=== PATIENT | female | born 1970 | race Hispanic/Latino ===

== ENCOUNTER 2016-08-19 07:36 | Emergency (ER) | payer SELFPAY ==
[2016-08-19] MEDS ORDERED: Ondansetron HCl/PF 4 MG/2 ML Vial ONE (08:00)
[2016-08-19] MEDS ORDERED: Sodium Chloride 0.9% 1,000 ML ONE (08:00)
[2016-08-19 08:06] LABS: Bilirubin Negative (Negative); Blood, Urine Negative (Negative); Glucose, Urine (Dipstick) Negative (Negative); Ketone, Urine Trace mg/dL (Negative); Nitrite Negative (Negative); Protein, Urine (Dipstick) 100 mg/dL (Neg-Trace)
[2016-08-19 08:21] LABS: Bacteria/HPF 1+ HPF (None Seen); RBC/HPF None Seen HPF (0-3); WBC/HPF 0-3 HPF (0-3)
[2016-08-19 08:28] LABS: ALT (SGPT) 90 U/L (0-55); AST (SGOT) 65 U/L (5-34); Alkaline Phosphatase 113 U/L (40-150); Anion Gap 18 mmol/L (10-20); BUN (Urea Nitrogen) 23 mg/dL (7.0-18.7); Bilirubin, Total 0.4 mg/dL (0.2-1.2); Calc. Creatinine Clearance 0 mL/min (70-130); Calcium 9.4 mg/dL (7.8-10.44); Carbon Dioxide 19 mmol/L (22-29); Chloride 101 mmol/L (98-107); Estimated GFR-MDRD 52; Globulin 3.9 g/dL (2.4-3.5); Protein, Total 7.6 g/dL (6.0-8.3)
[2016-08-19 08:51] LABS: Hematocrit 39.2 % (36.0-47.0); Mean Platelet Volume 6.9 fL (7.4-10.4); Red Blood Cell (RBC) Count 4.67 mill/uL (4.20-5.40); White Blood Cell (WBC) Count 16.2 thou/uL (4.8-10.8)
[2016-08-19 08:52] LABS: Anisocytosis SLIGHT = 6-15 cells (100X) (0-5/hpf); Band 2 % (5-11); Neutrophil 76 % (42-75)
[2016-08-19] MEDS ORDERED: Iopamidol 370 76% 100 ML VIAL ONE (09:00)
--- NOTE | 2016-08-19 11:03 | CT ---
CT OF THE ABDOMEN AND PELVIS WITH IV CONTRAST: Indication: History of left lower quadrant pain, fever, nausea. Comparison: CT of 03-28-16. FINDINGS: The lung bases are clear. There is mild fatty infiltration of the liver. There is a gallstone within the gallbladder. Pancreas appears within normal limits. The spleen is enlarged measuring 15 cm. Pancreas, adrenal glands, and kidneys are normal appearing. No free fluid or enlarged lymph nodes are evident. There is a normal appendix in the right lower quadrant. There is fat containing periumbilical herni a. There is a complex cystic mass seen within the region of the left adnexa measuring 7.3 x 6.8 cm. No free fluid is evident. There are small phleboliths in the lower pelvis. There are scattered degenerative osseous arthritic changes. IMPRESSION: 1. Enlarging complex cystic mass of the left adnexa. Recommend dedicated pelvis ultrasound for fur ther evaluation. Findings are suspicious for complex cystic neoplasm. 2. Fatty infiltration of the liver. 3. Splenomegaly. 4. Cholelithiasis. 5. Small hiatal hernia. POS: [facility]
[2016-08-19] MEDS ORDERED: Lidocaine 1% 20 ML MDV ONE (11:24)
[2016-08-19] MEDS ORDERED: HYDROcodone/Acetaminophen 10/325 mg Tablet ONE (11:24)
[2016-08-19] MEDS ORDERED: cefTRIAXone\\ROCEPHIN 1 GM VIAL ONE (11:24)
== END 2016-08-19 14:05 | disposition home or self-care (01) ==
LOC: NAV ERS 07:36
DX: N83.8 Other noninflammatory disorders of ovary, fallopian tube and broad ligament (principal); R51 Headache; R73.9 Hyperglycemia, unspecified; E66.9 Obesity, unspecified
CPT/HCPCS: 36415; 74177; 80053; 81003; 81015; 81025; 85025; 87086; 87491; 87591; 96361; 96372; 96374; 96375; J0696; J2001; J2270; J2405; J7050